=== PATIENT | female | born 1970 | race Caucasian/White ===

== ENCOUNTER 2016-11-04 11:46 | Inpatient (IN) | payer OTHER ==
[~2016-11-04] VITALS: Ht 172.7 cm; Wt 130.0 kg
[~2016-11-04 11:46] MED LIST: MIRTA15 PO; MONT10TA2 PO; RIBO100C PO; VERA120T3 PO; VITATAB25 PO; ZOCO40TA PO; ZOLM2.5T PO
[2016-11-05] MEDS ORDERED: GENTAMICIN SULFATE 80 MG/2 ML VIAL ONE (09:05)
[2016-11-05] MEDS ORDERED: METOPROLOL TARTRATE 25 MG TAB PO PRN (09:15)
[2016-11-05] MEDS ORDERED: SODIUM CHLORID 0.9% 500 ML IV SCH (09:15)
[2016-11-05] MEDS ORDERED: INSULIN HUMAN REGULAR 1,000 UNITS/10 ML VIAL SQ PRN (09:15)
[2016-11-05] MEDS ORDERED: VERA120T3 PO (09:44)
[2016-11-05] MEDS ORDERED: BENA25TA3 PO (09:44)
[2016-11-05] MEDS ORDERED: VITA1000 PO (09:44)
[2016-11-05] MEDS ORDERED: ZOCO40TA PO (09:44)
[2016-11-05] MEDS ORDERED: ZOMI5TAB5 PO (09:44)
[2016-11-05] MEDS ORDERED: MONT10TA4 PO (09:44)
[2016-11-05 09:57] VITALS: BP 140/87; PULSE 80; RESP 16; TEMP 97.9; O2SAT 96
[2016-11-05] MEDS: LACTATED RINGER'S 1000 ML IV SCH (10:00)
[2016-11-05] MEDS ORDERED: VANCOMYCIN HCL 1000 MG VIAL ONE (10:02)
[2016-11-05] MEDS ORDERED: SODIUM CHLOR 0.9% 250 ML INJ 250 ML ONE (10:02)
[2016-11-05] MEDS ORDERED: DEXAMETHASONE SOD PHOS 20 MG/5 ML VIAL ONE (10:03)
[2016-11-05] MEDS ORDERED: SODIUM CHLORIDE 0.9% INJ 100 ML ONE ×2 (10:05→10:06)
[2016-11-05] MEDS ORDERED: ceFAZolin 2 GM PREMIX 50 ML ONE (10:07)
[2016-11-05] MEDS ORDERED: ceFAZolin 2 GM PREMIX 50 ML IV SCH (10:15)
[2016-11-05] MEDS: POVIDONE IODINE 7.5% SCRUB 118 ML BOTTLE TOP SCH (10:15)
[2016-11-05] MEDS: TRANEXAMIC ACID IV SCH ×2 (10:15→13:55)
[2016-11-05] MEDS ORDERED: VANCOMYCIN 1000 MG/NS 250 ML (for <70 kg) IV SCH ×2 (10:15)
[2016-11-05] MEDS: SODIUM CHLORIDE 0.9% IV SCH ×2 (10:15→13:55)
[2016-11-05] MEDS ORDERED: ROPIVACAINE PERI-ARTICULAR INJECTION. PERIART SCH ×5 (10:15)
[2016-11-05] MEDS ORDERED: DEXAMETHASONE SOD PHOS 20 MG/5 ML VIAL IV SCH (10:30)
--- NOTE | 2016-11-05 11:56 | HHI.DCPOC ---
Discharge Care Plan Diagnosis: (1) Primary localized osteoarthrosis, lower leg (2) Status post total knee replacement, right Your Health Problems Are: Difficulty with ADL Goals to Promote Your Health * To prevent worsening of your condition and complications * To maintain your health at the optimal level Directions to Meet Your Goals Take your medications as prescribed Follow your dietary instruction Follow activity as directed Keep your appointments as scheduled Take your immunizations and boosters as scheduled If your symptoms worsen call your PCP, if no PCP go to Urgent Care Center or Emergency Room Smoking is Dangerous to Your Health. Avoid second hand smoke Call the 24-hour hour crisis hotline for domestic abuse at Rudy Delgado Nov 05, 2016 11:56
--- NOTE | 2016-11-05 11:57 | HHI.FF ---
Face to Face Verification Diagnosis: (1) Status post total knee replacement, right (2) Primary localized osteoarthrosis, lower leg Physical Therapy Gait training, Transfer training, bed to chair Knee: Total knee Right LE Weight Bearing: WB as tolerated Right LE Range of Motion: Active ROM Nursing Nursing: Trina teaching, Dressing changes Dressing Changes: Daily dressing change I have seen patient Destiny Quinteros on 11/05/16. My clinical findings support the need for the requested home health care services because: Limited ability to care for self High risk of falls I certify that my clinical findings support that this patient is homebound because: Post-op weakness Unsteady gait/balance Rudy Delgado Nov 05, 2016 11:57
[2016-11-05] MEDS ORDERED: COMMODE 3-IN-11 MIS (11:58)
[2016-11-05] MEDS ORDERED: WALKER WHEELS/F1 MIS (11:58)
[2016-11-05] MEDS ORDERED: CPMMACHINE (11:58)
[2016-11-05] MEDS ORDERED: PROPOFOL 200 MG/20 ML AMP IV ONE (12:01)
[2016-11-05] MEDS ORDERED: ONDANSETRON HCL 4 MG/2 ML VIAL IV PUSH ONE (12:01)
[2016-11-05] MEDS ORDERED: LACTATED RINGER'S 1000 ML INJ 1,000 ML IV ONE (12:01)
[2016-11-05] MEDS ORDERED: ROPIVACAINE PERIART SCH (12:21)
[2016-11-05] MEDS ORDERED: [UNRECOGNIZED DRUG - OTHER] PERIART SCH (12:21)
[2016-11-05] MEDS ORDERED: CLONIDINE PERIART SCH (12:21)
[2016-11-05] MEDS ORDERED: BUPIVACAINE LIPOSOME PF 1.3% 20 ML VIAL ONE (12:37)
[2016-11-05] MEDS ORDERED: MIDAZOLAM HCL 2 MG/2 ML VIAL ONE ×2 (12:43)
[2016-11-05] MEDS ORDERED: SUGAMMADEX SODIUM 200 MG/2 ML VIAL IV PUSH ONE ×2 (12:43)
[2016-11-05] MEDS ORDERED: ENOX40P SQ (13:08)
[2016-11-05] MEDS ORDERED: NORC5TAB PO (13:08)
[2016-11-05] MEDS ORDERED: ASPI325T PO (13:08)
[2016-11-05] MEDS ORDERED: ACETAMINOPHEN/HYDROcodone 325 MG/5 MG TAB PO PRN (13:15)
[2016-11-05] MEDS ORDERED: ZOLPIDEM TARTRATE 5 MG TAB PO PRN (13:15)
[2016-11-05] MEDS ORDERED: BISACODYL 10 MG SUPP PR PRN (13:15)
[2016-11-05] MEDS ORDERED: SODIUM CHLORIDE 0.9% FLUSH 5 ML FLUSH IVF PRN (13:15)
[2016-11-05] MEDS ORDERED: ONDANSETRON HCL 4 MG/2 ML VIAL IVP PRN (13:15)
[2016-11-05] MEDS ORDERED: ALUMINUM/MAGNESIUM/SIMETH 30 ML CUP PO PRN (13:15)
[2016-11-05] MEDS ORDERED: NALOXONE HCL 0.4 MG/ML AMP IV PRN (13:15)
[2016-11-05] MEDS ORDERED: diphenhydrAMINE HCL 50 MG CAP PO PRN (14:15)
--- NOTE | 2016-11-05 14:44 | PD.OP ---
cc: Kyaw Bassett MD Operative Report Date of Surgery: Nov 05, 2016 Preoperative Diagnosis: Right knee severe osteoarthritis. Obesity. Postoperative Diagnosis: Same Procedure: Right total knee arthroplasty Anesthesia: Adductor canal block and general Surgeon: Kyaw Bassett [employer] Administrative Assistant(s): OMID Negrete The surgical procedure was assisted by my Advanced Registered Nurse Practitioner. My HSPT TUTOR presence was necessary throughout this case for the manipulation and positioning of the surgical extremity. My HSPT TUTOR was assisting me throughout the duration of this procedure. The skill set of an Advance Registered Nurse Practitioner was medically necessary to complete this procedure. During the surgical case, the surgical garment assembler was working at the back table and the Advance Registered Nurse Practitioner was directly assisting me. Operation and Findings: Note that prior to moving forward with surgery the medicines were reviewed by operating room personnel to confirm no derivatives of alcohol were contained. We were advised that we could modify our bupivacaine cocktail to include just bupivacaine and clonidine. Additionally we were advised we can move forward with Ancef, vancomycin, Transexaminc acid, and Experel. IMPLANTS: DePuy Attune: Patella: size 38. Femur, posterior stabilized size 8. Tibia, rotating platform size 6. Tibial insert, rotating platform, posterior stabilized size 5 mm thickness. ESTIMATED BLOOD LOSS: 150 cc TOURNIQUET TIME: 52 minutes at 300 mmHg pressure. JUSTIFICATION FOR PROCEDURE: The patient has end-stage osteoarthritis to the knee. There is an attached conservative measures pathway form in the chart that describes the nonoperative measures that were undertaken prior to consideration of surgical management. The patient understood the risks and benefits of surgical management. See my office notes for further details PROCEDURE: The patient was brought back to the operative theatre. Adequate anesthesia was obtained. The patient received intravenous vancomycin and Ancef. The lower extremity was prepped and draped in the usual sterile fashion.The leg was exsanguinated, the tourniquet was raised. A standard anterior incision was performed followed by medial parapatellar arthrotomy was performed. Note that previous nonabsorbable suture was noted in the medial retinacular region. End-stage arthritis was identified. Small joint effusion with no signs of infection was noted. Osteotomy of the patella was performed. We drilled holes for the patella. We trialed the patella component. We placed an intramedullary guide into the distal femur. We ultimately resected 11 mm off of the distal femur in 5 degrees of valgus. The remnants of the ACL and PCL were resected. Osteotomy of the proximal tibia was performed, resecting 5 mm off of the medial side. This was done with 3 degrees of posterior slope using an extramedullary guide. The distal end of the guide was placed in the mid aspect of the ankle. The femur was sized, and four chamfer cuts were completed in 3 of external rotation. We then cut the central box in the distal femur to replace the PCL. We resected the remnants of the menisci and removed osteophytes off of the femur and tibia. We then trialed the knee. We punched the tibia for the keel, and then used standard technique to cement in components. Excess cement was removed. We trialed the knee again and the final polyethylene thickness was chosen to provide extension to 0 degrees, and flexion of 140 degrees to gravity. The ligaments were appropriately balanced. Lateral release was necessary to obtain excellent patellofemoral tracking. The tourniquet was released and adequate hemostasis was obtained. An intra- articular injection of a ropivacaine cocktail was injected. The posterior knee was inspected for excess cement, which was removed. The final polyethylene was put into position after thorough irrigation. We then closed deep fascia with a #2 Stratafix followed by skin with 2-0 Vicryl followed by twaanda. Postop plan is to weight-bear as tolerated. DVT prophylaxis will be performed with SCDs, OSIRIS guzman, early mobilization, and Lovenox followed by aspirin. Kyaw Bassett MD Nov 05, 2016 14:44
[2016-11-05] MEDS ORDERED: SODIUM CHLORIDE 0.9% IV SCH (15:00)
[2016-11-05] MEDS ORDERED: DO NOT ADM ANY ANTICOAGULANT DRUGS XX PRN (15:00)
[2016-11-05] MEDS ORDERED: Post-op Orders (for Pharmacy) MISC XX ONE (15:00)
[2016-11-05] MEDS ORDERED: TRANEXAMIC ACID IV SCH (15:00)
[2016-11-05] MEDS ORDERED: fentaNYL CITRATE 250 MCG/5 ML AMP ONE (15:16)
[2016-11-05] MEDS ORDERED: *morphine SULFATE 8 MG/ML PERIprocedure ONLY ONE ×2 (15:32→15:48)
[2016-11-05] MEDS ORDERED: PATIENT OWN MEDICATION PO PRN (15:45)
[2016-11-05] MEDS ORDERED: *HYDROmorphone PF 1 MG VIAL PERIprocedural Use ONLY ONE ×4 (15:55→16:49)
[2016-11-05] MEDS: SODIUM CHLOR 0.9% 1000 ML INJ 1,000 ML IV SCH ×2 (16:00→23:11)
--- NOTE | 2016-11-05 16:14 | RADRPT ---
EXAM DATE/TIME: 11/05/2016 15:43 [place] COMPARISON: No previous studies available for comparison. INDICATIONS : Post-op right total knee arthroplasty. MEDICAL HISTORY : None. SURGICAL HISTORY : None. ENCOUNTER: Initial ACUITY: 1 day PAIN SCORE: 10/10 LOCATION: Right knee FINDINGS: AP and lateral views of the knee following arthroplasty reveals a prosthesis in anatomic alignment. F racture is not appreciated. Surgical drain is evident CONCLUSION: Status post total knee arthroplasty. Laz Wright MD FACR Board Certified Radiologist. This report was verified electronically.
[2016-11-05] MEDS ORDERED: *diphenhydrAMINE HCL 50 MG/ML VIAL PERIprocedural Use ONLY ONE (17:32)
[2016-11-05] MEDS: PRAVASTATIN SOD 80 MG TAB PO SCH (19:44)
[2016-11-05] MEDS: MONTELUKAST SODIUM 10 MG TAB PO SCH (19:44)
[2016-11-05] MEDS: ACETAMINOPHEN/HYDROcodone 325 MG/5 MG TAB PO PRN (19:45)
[2016-11-05] MEDS: SODIUM CHLORIDE 0.9% FLUSH 5 ML FLUSH IVF SCH (19:45)
[2016-11-05] MEDS: MORPHINE SULFATE 4 MG/ML INJ IV PUSH PRN ×2 (19:48→23:11)
[2016-11-05 20:51] VITALS: BP 110/66; PULSE 77; RESP 18; TEMP 97.5; O2SAT 97
[2016-11-06] VITALS (9 sets, daily range): BP systolic 88–121; BP diastolic 52–75; PULSE 70–80; RESP 17–20; TEMP 97.2–98.9; O2SAT 93–96
[2016-11-06] MEDS: diphenhydrAMINE HCL 50 MG/ML VIAL IV PRN ×2 (00:07→21:01)
[2016-11-06] MEDS: ACETAMINOPHEN/HYDROcodone 325 MG/5 MG TAB PO PRN ×3 (00:08→08:40)
[2016-11-06] MEDS: MORPHINE SULFATE 4 MG/ML INJ IV PUSH PRN ×6 (02:46→20:44)
[2016-11-06 05:52] LABS: HEMATOCRIT 35.3 % (35.0-46.0); MEAN CELL VOLUME 91.7 FL (80.0-100.0); MEAN CORPUSCULAR HEMOGLOBIN 31.7 PG (27.0-34.0); MEAN CORPUSCULAR HGB CONC 34.6 % (32.0-36.0); PLATELET COUNT 155 TH/MM3 (150-450); RED BLOOD COUNT 3.85 MIL/MM3 (4.00-5.30); REVIEW FLAG FINAL; WHITE BLOOD COUNT 8.9 TH/MM3 (4.0-11.0)
[2016-11-06] MEDS ORDERED: MORPHINE SULFATE 4 MG/ML INJ IV PUSH ONE (06:45)
[2016-11-06] MEDS ORDERED: DEXAMETHASONE SOD PHOS PF 10 MG/ML VIAL IV ONE (07:45)
[2016-11-06] MEDS: SODIUM CHLOR 0.9% 1000 ML INJ 1,000 ML IV SCH ×2 (08:47→19:01)
[2016-11-06] MEDS: LACTATED RINGER'S 1000 ML IV SCH (08:48)
[2016-11-06] MEDS: SODIUM CHLORIDE 0.9% FLUSH 5 ML FLUSH IVF SCH ×2 (08:48→20:46)
[2016-11-06] MEDS: POVIDONE IODINE 7.5% SCRUB 118 ML BOTTLE TOP SCH (10:15)
[2016-11-06] MEDS ORDERED: ACETAMINOPHEN/HYDROcodone 325 MG/10 MG TAB PO PRN (10:30)
--- NOTE | 2016-11-06 11:01 | PD.CONS ---
HPI Service [facility] Consult Requested By Dr. Bassett Reason for Consult Medical management. [facility] Diagnoses: (1) Primary localized osteoarthrosis, lower leg (2) Status post total knee replacement, right (3) Sleep apnea (4) Migraine History of Present Illness 46-year-old female with a medical history significant for sleep apnea, migraine , osteoarthritis admitted for right knee arthroplasty. Patient reports she had an initial injury involving the right knee back in the 90s. Since then she has been having persistent pain. She has tried multiple arthroscopic surgery, multiple injections and physical therapy without relief. She was admitted for right knee replacement. The patient is seen postoperatively. Currently she is requesting that I increase her morphine because her pain is not controlled. Regarding migraines, she takes verapamil as needed at night. She use a C-pap for sleep apnea. Review of Systems Constitutional: DENIES: Fever, Chills Musculoskeletal: COMPLAINS OF: Joint pain, Muscle aches, Stiffness Neurologic: DENIES: Headache Other All other systems reviewed and are negative. Past Family Social History Allergies: Coded Allergies: Alcohol (Verified Allergy, Severe, ANAPHYLAXIS, 11/05/16) ALL ALCOHOL PRODUCTS and DERIVATIVES; INCLUDING ALL ALCOHOL DERIVATIVES IN MEDICATIONS AND TOPICALS, SUCH ALCOHOL PREP PADS, HAND MD PSYCHIATRY. Uncoded Allergies: ALCOHOL DERIVATIVES (Allergy, Severe, ANAPHYLAXSIS, 11/05/16) ALL ALCOHOL PRODUCTS and DERIVATIVES; INCLUDING ALL ALCOHOL DERIVATIVES IN MEDICATIONS AND TOPICALS, SUCH ALCOHOL PREP PADS, HAND MD PSYCHIATRY. Past Medical History Osteoarthritis Migraines Sleep apnea Past Surgical History Total right knee replacement Bilateral ankle surgeries after trauma Hernia repair Lithotripsy Reported Medications Reported Meds & Active Scripts Active [place] (Hydrocodone-Acetaminophen) 5-325 mg Tab 1-2 Tab PO Q4H PRN Aspirin 325 Mg Tab 325 Mg PO DAILY Start Aspirin after Lovenox is completed. Lovenox Inj (Enoxaparin Sodium) 40 Mg/0.4 Ml Syr 40 Mg SQ DAILY Start Aspirin after Lovenox is completed. Walker with Front Wheels (Device) 1 Mis Mis 1 Ea .ROUTE DIRECTED CPM-Continuous Passive Motion Machine 1 Ea Device 1 Ea .ROUTE DIRECTED Commode 3-in-1 (Device) 1 Mis Mis 1 Ea .ROUTE DIRECTED Reported Verapamil (Verapamil HCl) 120 Mg Tab 120 Mg PO HS PRN Benadryl Allergy (Diphenhydramine HCl) 25 Mg Tab 2 Tab PO DAILY PRN Zomig (Zolmitriptan) 5 Mg Tab 5 Mg PO DAILY PRN A second dose may be administered at least 2 hours after the first dose. Maximum dose 10 mg in 24 hours. Zocor (Simvastatin) 40 Mg Tab 40 Mg PO HS Montelukast (Montelukast Sodium) 10 Mg Tab 10 Mg PO HS Vitamin D-1000 (Cholecalciferol) 1,000 Unit Tab 1,000 Units PO DAILY Family History Reviewed and noncontributory. Social History Patient denies using tobacco, alcohol or illicit drugs. Physical Exam Vital Signs Vital Signs Date Time Temp Pulse Resp B/P Pulse Ox O2 Delivery O2 Flow Rate FiO2 11/06/16 09:00 121/75 11/06/16 08:34 93 Nasal Cannula 2.00 11/06/16 08:00 97.2 73 19 88/55 96 11/06/16 04:26 98.7 70 17 102/56 96 11/06/16 00:48 98.9 76 17 113/56 96 11/05/16 22:19 Nasal Cannula 3.00 11/05/16 20:51 97.5 77 18 110/66 97 11/05/16 18:30 97.8 85 16 146/80 98 Nasal Cannula 3 11/05/16 18:00 83 16 145/82 98 Nasal Cannula 3 11/05/16 17:30 84 16 142/83 98 Nasal Cannula 3 11/05/16 17:19 15 11/05/16 17:00 82 16 141/82 98 Nasal Cannula 3 11/05/16 16:54 15 11/05/16 16:45 81 16 143/79 98 Nasal Cannula 3 11/05/16 16:40 15 11/05/16 16:30 82 16 145/83 97 Nasal Cannula 3 11/05/16 16:25 15 11/05/16 16:15 80 16 141/83 97 Nasal Cannula 3 11/05/16 16:00 72 15 139/76 96 Nasal Cannula 3 11/05/16 15:53 15 11/05/16 15:45 74 15 141/82 95 Nasal Cannula 3 11/05/16 15:37 15 11/05/16 15:30 78 15 148/80 95 Nasal Cannula 3 11/05/16 15:15 80 15 152/79 97 Simple Mask 8 11/05/16 15:08 98.3 87 16 146/82 96 Simple Mask 8 Physical Exam GENERAL: This is a well-nourished, well-developed patient, in no apparent distress. SKIN: No rashes, ecchymoses or lesions. Cool and dry. HEAD: Atraumatic. Normocephalic. No temporal or scalp tenderness. EYES: Pupils equal round and reactive. Extraocular motions intact. No scleral icterus. No injection or drainage. ENT: Nose without bleeding, purulent drainage or septal hematoma. Throat without erythema, tonsillar hypertrophy or exudate. Uvula midline. Airway patent. NECK: Trachea midline. No JVD or lymphadenopathy. Supple, nontender, no meningeal signs. CARDIOVASCULAR: Regular rate and rhythm without murmurs, gallops, or rubs. RESPIRATORY: Clear to auscultation. Breath sounds equal bilaterally. No wheezes , rales, or rhonchi. GASTROINTESTINAL: Abdomen soft, non-tender, nondistended. No hepato-splenomegaly , or palpable masses. No guarding. MUSCULOSKELETAL: Right knee is in a postop splint. Neurovascularly intact distally at the toes. NEUROLOGICAL: Awake and alert. Cranial nerves II through XII intact. Motor and sensory grossly within normal limits. Five out of 5 muscle strength in all muscle groups. Normal speech. Laboratory Laboratory Tests Test 11/06/16 04:57 White Blood Count 8.9 Red Blood Count 3.85 Hemoglobin 12.2 Hematocrit 35.3 Mean Corpuscular Volume 91.7 Mean Corpuscular Hemoglobin 31.7 Mean Corpuscular Hemoglobin 34.6 Concent Red Cell Distribution Width 15.0 Platelet Count 155 Mean Platelet Volume 10.7 Result Diagram: 11/06/16 0457 Imaging Last Impressions Knee X-Ray 11/05/16 1301 Signed Impressions: Service Date/Time: Saturday, November 05, 2016 15:43 - CONCLUSION: Status post total knee arthroplasty. Laz Wright MD Assessment and Plan Problem List: (1) Primary localized osteoarthrosis, lower leg ICD Code: M17.10 Status: Acute (2) Status post total knee replacement, right ICD Code: Z96.651 Status: Acute (3) Sleep apnea ICD Code: G47.30 Status: Acute (4) Migraine ICD Code: G43.909 Status: Acute Assessment and Plan 46-year-old female with: Osteoarthritis of the right knee status post total knee arthroplasty: - Continue routine postoperative care per orthopedics. - Pain uncontrolled. Will increase morphine to 4 mg IV for breakthrough. Continue Lortab. - PT per protocol. Migraines: Patient normally take verapamil as needed. Currently doing well from that standpoint. Sleep apnea: Continue Cpap at night. GI prophylaxis: Stool softener PRN constipation. DVT PPx: LoveVj Andrade MD Nov 06, 2016 11:01
[2016-11-06] MEDS: ACETAMINOPHEN/HYDROcodone 325 MG/10 MG TAB PO PRN ×2 (11:45→18:10)
--- NOTE | 2016-11-06 12:24 | PD.ORT.PN ---
Subjective Post Op Day #: 1 Subjective Remarks The patient is resting in bed using her CPM. Patient is having increased pain today. Requesting an increase in her pain medication. Patient is voiding. Objective Vitals Vital Signs Date Time Temp Pulse Resp B/P Pulse Ox O2 Delivery O2 Flow Rate FiO2 11/06/16 09:00 121/75 11/06/16 08:34 93 Nasal Cannula 2.00 11/06/16 08:00 97.2 73 19 88/55 96 11/06/16 04:26 98.7 70 17 102/56 96 11/06/16 00:48 98.9 76 17 113/56 96 11/05/16 22:19 Nasal Cannula 3.00 11/05/16 20:51 97.5 77 18 110/66 97 11/05/16 18:30 97.8 85 16 146/80 98 Nasal Cannula 3 11/05/16 18:00 83 16 145/82 98 Nasal Cannula 3 11/05/16 17:30 84 16 142/83 98 Nasal Cannula 3 11/05/16 17:19 15 11/05/16 17:00 82 16 141/82 98 Nasal Cannula 3 11/05/16 16:54 15 11/05/16 16:45 81 16 143/79 98 Nasal Cannula 3 11/05/16 16:40 15 11/05/16 16:30 82 16 145/83 97 Nasal Cannula 3 11/05/16 16:25 15 11/05/16 16:15 80 16 141/83 97 Nasal Cannula 3 11/05/16 16:00 72 15 139/76 96 Nasal Cannula 3 11/05/16 15:53 15 11/05/16 15:45 74 15 141/82 95 Nasal Cannula 3 11/05/16 15:37 15 11/05/16 15:30 78 15 148/80 95 Nasal Cannula 3 11/05/16 15:15 80 15 152/79 97 Simple Mask 8 11/05/16 15:08 98.3 87 16 146/82 96 Simple Mask 8 I/O 11/05/16 11/05/16 11/05/16 11/06/16 11/06/16 11/06/16 07:00 15:00 23:00 07:00 15:00 23:00 Intake Total 2040 ml 360 ml Output Total 1125 ml 400 ml Balance 915 ml -40 ml Intake Oral 240 ml 360 ml IV Total 300 ml Other 1500 ml Output Urine Total 1025 ml 400 ml Estimated Blood Loss 100 ml # Bowel Movements 0 0 Result Diagram: 11/06/16 0457 Imaging Last 24 hours Impressions Knee X-Ray 11/05/16 1301 Signed Impressions: Service Date/Time: Saturday, November 05, 2016 15:43 - CONCLUSION: Status post total knee arthroplasty. Laz Wright MD Procedures Right TKA Objective Remarks The patient's dressing is C/D/I. EHL/TA/G intact. 2+ pedal pulse. Calf is soft and nontender. Minimal swelling. + SILT. Assessment & Plan Ortho Post Op Day #: 1 Problem List: Assessment and Plan POD #1: Right TKA 1. WBAT RLE 2. Lovenox for DVT prophylaxis 3. Ice to the right knee PRN 4. Anticipatory discharge home with home health on Thursday. 5. I will increase the patient's pain medication today to [place] 10 mg and Morphine 4 mg. We will discontinue the Morphine on Thursday. Rudy Delgado Nov 06, 2016 12:24
[2016-11-06] MEDS: ENOXAPARIN SODIUM 40 MG/0.4 ML SYRINGE SQ SCH (12:52)
[2016-11-06] MEDS: PRAVASTATIN SOD 80 MG TAB PO SCH (20:44)
[2016-11-06] MEDS: MONTELUKAST SODIUM 10 MG TAB PO SCH (20:46)
[2016-11-06] MEDS: DOCUSATE SODIUM 100 MG CAP PO SCH (20:49)
[2016-11-06] MEDS: MULTIVITAMINS/MINERALS THERAPEUTIC TAB PO SCH (21:00)
[2016-11-06] MEDS: VERAPAMIL HCL 120 MG TAB PO PRN (21:01)
[2016-11-07] VITALS (7 sets, daily range): BP systolic 102–165; BP diastolic 59–94; PULSE 68–98; RESP 16–26; TEMP 97.2–98.5; O2SAT 91–98
[2016-11-07] MEDS: MORPHINE SULFATE 4 MG/ML INJ IV PUSH PRN ×3 (00:13→08:22)
[2016-11-07] MEDS: ACETAMINOPHEN/HYDROcodone 325 MG/10 MG TAB PO PRN ×5 (04:09→21:41)
[2016-11-07] MEDS: SODIUM CHLOR 0.9% 1000 ML INJ 1,000 ML IV SCH ×2 (05:01→15:01)
[2016-11-07 05:56] LABS: HEMATOCRIT 32.7 % (35.0-46.0); MEAN CELL VOLUME 92.1 FL (80.0-100.0); MEAN CORPUSCULAR HEMOGLOBIN 31.4 PG (27.0-34.0); MEAN CORPUSCULAR HGB CONC 34.1 % (32.0-36.0); PLATELET COUNT 146 TH/MM3 (150-450); RED BLOOD COUNT 3.55 MIL/MM3 (4.00-5.30); RED CELL DISTRIBUTION WIDTH 15.4 % (11.6-17.2); REVIEW FLAG FINAL; WHITE BLOOD COUNT 9.2 TH/MM3 (4.0-11.0)
[2016-11-07] MEDS: DOCUSATE SODIUM 100 MG CAP PO SCH ×2 (08:25→21:00)
[2016-11-07] MEDS: MULTIVITAMINS/MINERALS THERAPEUTIC TAB PO SCH ×2 (08:25→20:59)
[2016-11-07] MEDS: SODIUM CHLORIDE 0.9% FLUSH 5 ML FLUSH IVF SCH ×2 (09:00→21:00)
[2016-11-07] MEDS: LACTATED RINGER'S 1000 ML IV SCH (09:15)
[2016-11-07] MEDS: POVIDONE IODINE 7.5% SCRUB 118 ML BOTTLE TOP SCH (10:15)
[2016-11-07] MEDS: LORazepam 0.5 MG TAB PO PRN (10:18)
[2016-11-07] MEDS ORDERED: DIAZEPAM 5 MG TAB PO ONE (13:15)
[2016-11-07] MEDS: ENOXAPARIN SODIUM 40 MG/0.4 ML SYRINGE SQ SCH (13:31)
--- NOTE | 2016-11-07 15:55 | PD.ORT.PN ---
Subjective Post Op Day #: 2 Subjective Remarks The patient is resting in bed with continued pain today. Requesting an increase in her pain medication. Patient is voiding. Patient is ambulatory. Objective Vitals Vital Signs Date Time Temp Pulse Resp B/P Pulse Ox O2 Delivery O2 Flow Rate FiO2 11/07/16 12:00 97.5 98 26 165/94 98 11/07/16 10:55 95 2.00 11/07/16 08:00 97.8 88 16 121/67 92 11/07/16 04:00 97.6 76 18 102/61 91 11/07/16 00:00 97.6 68 20 108/63 93 11/06/16 21:45 96 Nasal Cannula 2.00 11/06/16 20:00 97.3 76 20 99/52 95 11/06/16 16:00 98.0 80 17 120/70 96 I/O 11/06/16 11/06/16 11/06/16 11/07/16 11/07/16 11/07/16 07:00 15:00 23:00 07:00 15:00 23:00 Intake Total 360 ml 600 ml 480 ml 250 ml Output Total 400 ml Balance -40 ml 600 ml 480 ml 250 ml Intake Oral 360 ml 600 ml 480 ml 250 ml Output Urine Total 400 ml # Voids 3 2 1 # Bowel Movements 0 0 0 Result Diagram: 11/07/16 0444 Imaging Last 24 hours Impressions Knee X-Ray 11/05/16 1301 Signed Impressions: Service Date/Time: Saturday, November 05, 2016 15:43 - CONCLUSION: Status post total knee arthroplasty. Laz Wright MD Procedures Right TKA Objective Remarks The patient's dressing is changed with scant serosanguineous drainage. Incision is well approximated with surgical clips intact. No redness or s/s of infection. EHL/TA/G intact. 2+ pedal pulse. Calf is soft and nontender. Moderate swelling. + SILT. Assessment & Plan Ortho Post Op Day #: 2 Problem List: Assessment and Plan POD #2: Right TKA 1. WBAT RLE 2. Lovenox for DVT prophylaxis 3. Ice to the right knee PRN 4. Anticipatory discharge home with home health on Thursday. Rudy Delgado Nov 07, 2016 15:55
[2016-11-07] MEDS ORDERED: HYDR-3366 PO (15:56)
[2016-11-07] MEDS ORDERED: DIAZ5 PO (16:02)
[2016-11-07] MEDS: PRAVASTATIN SOD 80 MG TAB PO SCH (20:59)
[2016-11-07] MEDS: DIAZEPAM 5 MG TAB PO SCH (21:00)
[2016-11-07] MEDS: MONTELUKAST SODIUM 10 MG TAB PO SCH (21:00)
[2016-11-07] MEDS: VERAPAMIL HCL 120 MG TAB PO PRN (21:02)
[2016-11-08] VITALS: BP 116/67; PULSE 70; RESP 20; TEMP 98.1; O2SAT 95
[2016-11-08] MEDS: SODIUM CHLOR 0.9% 1000 ML INJ 1,000 ML IV SCH ×2 (01:01→10:01)
[2016-11-08] MEDS: ACETAMINOPHEN/HYDROcodone 325 MG/10 MG TAB PO PRN ×4 (02:09→15:21)
[2016-11-08] MEDS: LORazepam 0.5 MG TAB PO PRN (02:55)
[2016-11-08 02:57] VITALS: BP 149/79; PULSE 96; RESP 24; TEMP 98.7; O2SAT 95
[2016-11-08 04:00] VITALS: BP 120/68; PULSE 70; RESP 20; TEMP 98.6; O2SAT 94
[2016-11-08 07:37] LABS: HEMATOCRIT 31.8 % (35.0-46.0); MEAN CELL VOLUME 91.9 FL (80.0-100.0); MEAN CORPUSCULAR HEMOGLOBIN 31.7 PG (27.0-34.0); MEAN CORPUSCULAR HGB CONC 34.4 % (32.0-36.0); PLATELET COUNT 136 TH/MM3 (150-450); RED BLOOD COUNT 3.46 MIL/MM3 (4.00-5.30); RED CELL DISTRIBUTION WIDTH 15.5 % (11.6-17.2); REVIEW FLAG FINAL; WHITE BLOOD COUNT 8.1 TH/MM3 (4.0-11.0)
--- NOTE | 2016-11-08 07:42 | PD.ORT.PN ---
Subjective Subjective Remarks pt complains of post-op right knee pain Objective Vitals Vital Signs Date Time Temp Pulse Resp B/P Pulse Ox O2 Delivery O2 Flow Rate FiO2 11/08/16 04:00 98.6 70 20 120/68 94 11/08/16 02:57 98.7 96 24 149/79 95 11/08/16 00:00 98.1 70 20 116/67 95 11/07/16 20:00 98.5 86 20 110/59 91 11/07/16 16:00 97.2 78 16 126/71 94 11/07/16 12:00 97.5 98 26 165/94 98 11/07/16 10:55 95 2.00 11/07/16 08:00 97.8 88 16 121/67 92 I/O 11/07/16 11/07/16 11/07/16 11/08/16 11/08/16 11/08/16 07:00 15:00 23:00 07:00 15:00 23:00 Intake Total 250 ml 480 ml 220 ml Output Total 480 ml Balance 250 ml 0 ml 220 ml Intake Oral 250 ml 480 ml 220 ml Output Urine Total 480 ml # Voids 1 1 3 # Bowel Movements 0 0 Result Diagram: 11/07/16 0444 Imaging Last 24 hours Impressions Knee X-Ray 11/05/16 1301 Signed Impressions: Service Date/Time: Saturday, November 05, 2016 15:43 - CONCLUSION: Status post total knee arthroplasty. Laz Wright MD Procedures Right TKA Objective Remarks seen by Dr. Petar Gutierrez right knee dressings dry and intact EHL/TA/G intact. 2+ pedal pulse. Calf is soft and nontender. Assessment & Plan Assessment and Plan POD #3: Right TKA 1. WBAT RLE 2. Lovenox for DVT prophylaxis 3. Ice to the right knee PRN 4. Discharge home today with [facility], orthopedically stable Lida Wall Nov 08, 2016 07:42
[2016-11-08 08:00] VITALS: BP 120/72; PULSE 76; RESP 18; TEMP 97.8; O2SAT 95
[2016-11-08] MEDS: DOCUSATE SODIUM 100 MG CAP PO SCH (09:00)
[2016-11-08] MEDS: MULTIVITAMINS/MINERALS THERAPEUTIC TAB PO SCH (09:00)
[2016-11-08] MEDS: SODIUM CHLORIDE 0.9% FLUSH 5 ML FLUSH IVF SCH (09:09)
[2016-11-08] MEDS: DIAZEPAM 5 MG TAB PO SCH (09:09)
[2016-11-08] MEDS: MAGNESIUM HYDROXIDE SUSP 30 ML CUP PO PRN ×2 (09:10→14:55)
[2016-11-08] MEDS: LACTATED RINGER'S 1000 ML IV SCH (09:15)
--- NOTE | 2016-11-08 11:42 | HHI.PR ---
Subjective Remarks Patient reported having pain 7 out of 10, she is on her C Pap No fever or chills Plan to be discharged today per ortho Objective Vitals Vital Signs Date Time Temp Pulse Resp B/P Pulse Ox O2 Delivery O2 Flow Rate FiO2 11/08/16 08:00 97.8 76 18 120/72 95 11/08/16 04:00 98.6 70 20 120/68 94 11/08/16 03:09 18 11/08/16 02:57 98.7 96 24 149/79 95 11/08/16 00:00 98.1 70 20 116/67 95 11/07/16 20:00 98.5 86 20 110/59 91 11/07/16 16:00 97.2 78 16 126/71 94 11/07/16 12:00 97.5 98 26 165/94 98 I/O 11/07/16 11/07/16 11/07/16 11/08/16 11/08/16 11/08/16 07:00 15:00 23:00 07:00 15:00 23:00 Intake Total 250 ml 480 ml 220 ml Output Total 480 ml Balance 250 ml 0 ml 220 ml Intake Oral 250 ml 480 ml 220 ml Output Urine Total 480 ml # Voids 1 1 3 # Bowel Movements 0 0 Result Diagram: 11/08/16 0620 Objective Remarks GENERAL: This is a well-nourished, well-developed patient, in no apparent distress. SKIN: No rashes, warm and dry HEAD: Atraumatic. Normocephalic. EYES: Pupils equal round and reactive. Extraocular motions intact. No scleral icterus. ENT: Nose without bleeding, or drainage, Airway patent. NECK: Trachea midline. Supple CARDIOVASCULAR: Regular rate and rhythm without murmurs, gallops, or rubs. RESPIRATORY: Fair air entry bilaterally. No wheezes, rales, or rhonchi. GASTROINTESTINAL: Abdomen soft, non-tender, nondistended. Positive bowel sounds MUSCULOSKELETAL: Extremities without clubbing, cyanosis, or edema. Pedal pulses appreciated NEUROLOGICAL: Awake and alert. Moves all extremity. Normal speech.no focal neurological deficit A/P Problem List: (1) Primary localized osteoarthrosis, lower leg ICD Code: M17.10 Status: Acute (2) Status post total knee replacement, right ICD Code: Z96.651 Status: Acute (3) Sleep apnea ICD Code: G47.30 Status: Acute (4) Migraine ICD Code: G43.909 Status: Acute Assessment and Plan 46-year-old female with: Osteoarthritis of the right knee status post total knee arthroplasty: - Continue routine postoperative care per orthopedics. - Pain uncontrolled. Morphine and Continue Lortab. - PT per protocol. Migraines: Patient normally take verapamil as needed. Sleep apnea: Continue Cpap at night. GI prophylaxis: Stool softener PRN constipation. DVT PPx: Lovenox Discharge Planning Medically clear for discharge per primary ortho Murtaza Magallanes MD Nov 08, 2016 11:42
[2016-11-08 12:00] VITALS: BP 123/78; PULSE 78; RESP 18; TEMP 97.7; O2SAT 94
[2016-11-08] MEDS: ENOXAPARIN SODIUM 40 MG/0.4 ML SYRINGE SQ SCH (13:15)
--- NOTE | 2016-11-10 21:35 | HHI.DS ---
Discharge Summary Admission Date Nov 05, 2016 at 08:30 Discharge Date: Nov 08, 2016 Admitting Diagnosis Primary localized OA, lower leg Status post total knee replacement, right Diagnosis: (1) Primary localized osteoarthrosis, lower leg Diagnosis: Principal (2) Status post total knee replacement, right Diagnosis: Principal Procedures Right TKA Brief History This is a 46 year old female patient with severe OA of the right knee. CBC/BMP: 11/08/16 0620 Significant Findings Laboratory Tests Test 11/08/16 06:20 Red Blood Count 3.46 MIL/MM3 (4.00-5.30) Hemoglobin 11.0 GM/DL (11.6-15.3) Hematocrit 31.8 % (35.0-46.0) Platelet Count 136 TH/MM3 (150-450) Mean Platelet Volume 11.3 FL (7.0-11.0) PE at Discharge seen by Dr. Petar Gutierrez right knee dressings dry and intact EHL/TA/G intact. 2+ pedal pulse. Calf is soft and nontender. Hospital Course The patient was admitted to the hospital for severe OA of the right knee to have a right TKA. The patient's surgery went well without complications. The patient had a normal hospital course aside from difficulty with pain management. The patient is WBAT on the right lower extremity. The patient was discharged to home on Thursday and will f/u in the office in [address] Bassett. Pt Condition on Discharge: Stable Discharge Disposition: Disch w/ Home Health Serv Discharge Instructions Diet Instructions: As Tolerated, No Restrictions Activities You Can Perform: Weight Bearing as Rosalinda Activities to Avoid: Strenuous Activity Follow up Referrals: Orthopedics with Kyaw Bassett MD [facility]/ with NURSE SAND MIXER New Medications: Aspirin (Aspirin) 325 Mg Tab 325 MG PO DAILY Start Aspirin after Lovenox is completed. Prevent Blood Clot # 30 Ref 0 TAB Commode 3-in-1 (Commode 3-in-1) 1 Mis Mis 1 EA .ROUTE DIRECTED #1 Ref 0 EA CPM-Continuous Passive Motion Machine (CPM-Continuous Passive Motion Machine) 1 Ea Device 1 EA .ROUTE DIRECTED #1 Ref 0 EA Diazepam (Valium) 5 Mg Tab 5 MG PO BID PRN ANXIETY #20 Ref 0 TAB Enoxaparin Inj (Lovenox Inj) 40 Mg/0.4 Ml Syr 40 MG SQ DAILY Start Aspirin after Lovenox is completed. Blood Clot Prevention # 10 Ref 0 [place] Hydrocodone-Acetaminophen ([place]) 10-325 Mg Tab 1-2 TAB PO Q4H PRN PAIN #60 Ref 0 TAB Walker with Front Wheels (Walker with Front Wheels) 1 Mis Mis 1 EA .ROUTE DIRECTED #1 Ref 0 EA Continued Medications: Cholecalciferol (Vitamin D-1000) 1,000 Unit Tab 1000 UNITS PO DAILY Nutritional Supplement Ref 0 BOTTLE Diphenhydramine (Benadryl Allergy) 25 Mg Tab 2 TAB PO DAILY PRN ALLERGIES Ref 0 TAB Montelukast (Montelukast) 10 Mg Tab 10 MG PO HS #30 Ref 0 TAB Simvastatin (Zocor) 40 Mg Tab 40 MG PO HS Cholesterol Management Ref 0 TAB Verapamil (Verapamil) 120 Mg Tab 120 MG PO HS PRN MIGRAINE HEADACHE Ref 0 TAB Zolmitriptan (Zomig) 5 Mg Tab 5 MG PO DAILY A second dose may be administered at least 2 hours after the first dose. Maximum dose 10 mg in 24 hours. PRN MIGRAINE HEADACHE Ref 0 TAB Rudy Delgado Nov 10, 2016 21:35
== END 2016-11-08 16:27 | disposition home health service (06) | DRG 470 ==
LOC: HSDI 11-05 08:30 → N06B 11-05 18:49
PROVIDERS: ADMIT Orthopaedic Surgery; ATTEND Orthopaedic Surgery
PROC: 3E0T3BZ Introduction of Anesthetic Agent into Peripheral Nerves and Plexi, Percutaneous Approach (ICD-10-PCS; 2016-11-05)
PROC: 0SRC0J9 Replacement of Right Knee Joint with Synthetic Substitute, Cemented, Open Approach (ICD-10-PCS; principal; 2016-11-05 12:53)
DX: M17.11 Unilateral primary osteoarthritis, right knee (principal); Z68.41 Body mass index [BMI] 40.0-44.9, adult; E66.9 Obesity, unspecified; G47.30 Sleep apnea, unspecified; G43.909 Migraine, unspecified, not intractable, without status migrainosus; J44.9 Chronic obstructive pulmonary disease, unspecified
CPT/HCPCS: 36415; 73560; 85027; 86850; 86900; 86901; 94150; C1776; C9290; J0171; J0690; J0735; J1100; J1170; J1200; J1580; J1650; J1885; J2250; J2270; J2405; J2795; J3010; J3370; J7030; J7050; J7120; L1830; Q0163